=== PATIENT | female | born 1965 | race African-American/Black ===

== ENCOUNTER 2021-03-03 10:24 | Inpatient (IN) | payer OTHER ==
[2021-03-03 12:42] VITALS: BMI 41.5
[2021-03-03] MEDS ORDERED: MAGNESIUM HYDROX 2400MG/30ML ORAL SUSPENSION 30 ML CUP PO PRN (13:40)
[2021-03-03] MEDS ORDERED: ONDANSETRON *ODT* 4 MG TABLET SL PRN (13:40)
[2021-03-03] MEDS ORDERED: ACETAMINOPHEN 325 MG TABLET (FP) PO PRN (13:40)
[2021-03-03] MEDS ORDERED: MAG HYDROX/AL HYDROX/SIMETH 30 ML UNIT-DOSE CUP PO PRN (13:40)
[2021-03-03] MEDS ORDERED: MENTHOL/PHENOL 1 EACH UD MM PRN (13:40)
[2021-03-03] MEDS ORDERED: METHOCARBAMOL 500 MG TABLET PO PRN (13:40)
[2021-03-03] MEDS ORDERED: MAGNESIUM CITRATE 300 ML BOTTLE PO PRN (13:40)
[2021-03-03] MEDS ORDERED: NICOTINE 10 MG CARTRIDGE (INHALER) IH PRN (13:40)
[2021-03-03] MEDS ORDERED: BISMUTH SUBSALICYLATE 524 MG/30 ML PO PRN (13:40)
[2021-03-03] MEDS ORDERED: hydrOXYzine PAMOATE 25 MG CAPSULE (FP) PO SCH (14:00)
[2021-03-03] MEDS: PRENATAL VITAMINS W/ FOLIC ACID TABLET (FP) PO SCH (15:17)
[2021-03-03] MEDS: diazePAM 5 MG TABLET PO PRN ×2 (15:17→19:28)
[2021-03-03] MEDS ORDERED: FUROSEMIDE 40 MG TABLET (FP) PO ONE (15:19)
[2021-03-03] MEDS: diazePAM 5 MG TABLET PO SCH ×2 (18:00→22:26)
[2021-03-03] MEDS ORDERED: FUROSEMIDE 40 MG TABLET (FP) PO SCH (22:00)
[2021-03-03] MEDS ORDERED: PATIENT'S OWN MEDICATION (NON-FORMULARY) (Zolpidem Tartrate [Ambien] 10 MG Tablet) PO SCH (22:00)
[2021-03-03] MEDS: THIAMINE HCL 100 MG TABLET (FP) PO SCH (22:26)
[2021-03-03] MEDS: MELATONIN 5 MG TABLETS PO SCH (22:33)
[2021-03-04] MEDS: IBUPROFEN 400 MG TABLET (FP) PO PRN ×3 (01:19→21:39)
[2021-03-04] MEDS: diazePAM 5 MG TABLET PO PRN (01:20)
[2021-03-04] MEDS: ALBUTEROL SO4 HFA INHALER IH PRN ×2 (01:46→10:30)
[2021-03-04] MEDS: diazePAM 5 MG TABLET PO SCH ×4 (05:44→22:00)
[2021-03-04] MEDS: ACETAMINOPHEN 325 MG TABLET (FP) PO PRN ×2 (05:45→16:27)
[2021-03-04] MEDS: LEVOTHYROXINE NA 100 MCG TABLET (FP) PO SCH (07:00)
[2021-03-04] MEDS: FUROSEMIDE 40 MG TABLET (FP) PO SCH ×2 (07:00→13:01)
[2021-03-04] MEDS ORDERED: methaDONE HCL 40 MG DISPERSABLE TABLET PO SCH (10:00)
[2021-03-04] MEDS: PRENATAL VITAMINS W/ FOLIC ACID TABLET (FP) PO SCH (10:02)
[2021-03-04] MEDS: amLODIPine BESYLATE 10 MG TABLET (FP) PO SCH (10:02)
[2021-03-04] MEDS: LOSARTAN POTASSIUM 50 MG TABLET PO SCH (10:02)
[2021-03-04 11:16] LABS: HEMATOCRIT 40.4 % (32.4-45.2); HEMOGLOBIN 13.9 GM/dL (10.7-15.3); MCH 31.6 pg (25.7-33.7); MCHC 34.3 g/dl (32.0-36.0); MEAN CELL VOLUME 92.1 fl (80-96); MEAN PLT VOLUME 9.9 fl (7.5-11.1); PLATELET COUNT 149 10^3/uL (134-434); RBC 4.39 M/mm3 (3.60-5.2); RDW 13.6 % (11.6-15.6); WHITE BLOOD COUNT 4.1 K/mm3 (4.0-10.0)
[2021-03-04 11:35] LABS: ALBUMIN 3.6 g/dl (3.4-5.0); BLOOD UREA NITROGEN 10.8 mg/dL (7-18); CALCIUM 8.7 mg/dL (8.5-10.1)
[2021-03-04 11:36] LABS: BILIRUBIN,TOTAL 0.3 mg/dL (0.2-1)
[2021-03-04 11:38] LABS: CREATININE 1.1 mg/dL (0.55-1.3)
[2021-03-04] MEDS: SODIUM CHLORIDE NASAL SPRAY 44 ML BOTTLE NS SCH ×2 (11:45→21:34)
[2021-03-04] MEDS: THIAMINE HCL 100 MG TABLET (FP) PO SCH (21:35)
[2021-03-04] MEDS: MELATONIN 5 MG TABLETS PO SCH (21:42)
[2021-03-04] MEDS: INSULIN SLIDING SCALE (NOVOLOG) 1 VIAL SQ SCH (21:52)
[2021-03-05] MEDS: ACETAMINOPHEN 325 MG TABLET (FP) PO PRN (05:40)
[2021-03-05] MEDS: methaDONE HCL 40 MG DISPERSABLE TABLET PO SCH (05:41)
[2021-03-05] MEDS: diazePAM 5 MG TABLET PO SCH ×4 (05:41→21:09)
[2021-03-05] MEDS: FUROSEMIDE 40 MG TABLET (FP) PO SCH ×4 (05:42→14:47)
[2021-03-05] MEDS: ALBUTEROL SO4 HFA INHALER IH PRN ×2 (05:55→10:22)
[2021-03-05] MEDS: LEVOTHYROXINE NA 100 MCG TABLET (FP) PO SCH (06:04)
[2021-03-05] MEDS: IBUPROFEN 400 MG TABLET (FP) PO PRN (10:18)
[2021-03-05] MEDS: PRENATAL VITAMINS W/ FOLIC ACID TABLET (FP) PO SCH (10:19)
[2021-03-05] MEDS: amLODIPine BESYLATE 10 MG TABLET (FP) PO SCH (10:19)
[2021-03-05] MEDS: SODIUM CHLORIDE NASAL SPRAY 44 ML BOTTLE NS SCH ×2 (10:19→21:10)
[2021-03-05] MEDS: LOSARTAN POTASSIUM 50 MG TABLET PO SCH (10:19)
[2021-03-05] MEDS: diazePAM 5 MG TABLET PO PRN (10:24)
[2021-03-05] MEDS: MELATONIN 5 MG TABLETS PO SCH (21:10)
[2021-03-05] MEDS: THIAMINE HCL 100 MG TABLET (FP) PO SCH (21:10)
[2021-03-05] MEDS: INSULIN SLIDING SCALE (NOVOLOG) 1 VIAL SQ SCH (23:11)
[2021-03-06] MEDS: ALBUTEROL SO4 HFA INHALER IH PRN (03:24)
[2021-03-06] MEDS: diazePAM 5 MG TABLET PO PRN ×2 (03:24→10:06)
[2021-03-06] MEDS: IBUPROFEN 400 MG TABLET (FP) PO PRN ×2 (03:29→10:06)
[2021-03-06] MEDS: methaDONE HCL 40 MG DISPERSABLE TABLET PO SCH (06:31)
[2021-03-06] MEDS: LEVOTHYROXINE NA 100 MCG TABLET (FP) PO SCH (06:32)
[2021-03-06] MEDS: diazePAM 5 MG TABLET PO SCH ×2 (06:32→17:28)
[2021-03-06] MEDS: FUROSEMIDE 40 MG TABLET (FP) PO SCH ×2 (06:33→14:51)
[2021-03-06] MEDS: LOSARTAN POTASSIUM 50 MG TABLET PO SCH (10:04)
[2021-03-06] MEDS: SODIUM CHLORIDE NASAL SPRAY 44 ML BOTTLE NS SCH ×2 (10:04→22:34)
[2021-03-06] MEDS: amLODIPine BESYLATE 10 MG TABLET (FP) PO SCH (10:04)
[2021-03-06] MEDS: PRENATAL VITAMINS W/ FOLIC ACID TABLET (FP) PO SCH (10:05)
[2021-03-06] MEDS: HYDROCHLOROTHIAZIDE 25 MG TABLET (FP) PO SCH (14:51)
[2021-03-06] MEDS: hydrOXYzine PAMOATE 25 MG CAPSULE (FP) PO PRN (20:19)
[2021-03-06] MEDS: MELATONIN 5 MG TABLETS PO SCH (22:33)
[2021-03-06] MEDS: THIAMINE HCL 100 MG TABLET (FP) PO SCH (22:33)
[2021-03-06] MEDS: INSULIN SLIDING SCALE (NOVOLOG) 1 VIAL SQ SCH (22:34)
[2021-03-07] MEDS ORDERED: diazePAM 5 MG TABLET PO ONE (06:00)
[2021-03-07] MEDS: methaDONE HCL 40 MG DISPERSABLE TABLET PO SCH (06:22)
[2021-03-07] MEDS: FUROSEMIDE 40 MG TABLET (FP) PO SCH (06:23)
[2021-03-07] MEDS: hydrOXYzine PAMOATE 25 MG CAPSULE (FP) PO PRN (06:23)
[2021-03-07] MEDS: LEVOTHYROXINE NA 100 MCG TABLET (FP) PO SCH (06:23)
[2021-03-07] MEDS: ALBUTEROL SO4 HFA INHALER IH PRN (06:44)
[2021-03-07 07:28] VITALS: BP 124/97; PULSE 72; TEMP 97
[2021-03-07] MEDS: HYDROCHLOROTHIAZIDE 25 MG TABLET (FP) PO SCH (09:10)
[2021-03-07] MEDS: SODIUM CHLORIDE NASAL SPRAY 44 ML BOTTLE NS SCH (09:10)
[2021-03-07] MEDS: LOSARTAN POTASSIUM 50 MG TABLET PO SCH (09:10)
[2021-03-07] MEDS: amLODIPine BESYLATE 10 MG TABLET (FP) PO SCH (09:10)
[2021-03-07] MEDS: PRENATAL VITAMINS W/ FOLIC ACID TABLET (FP) PO SCH (09:10)
== END 2021-03-07 09:30 | disposition home or self-care (01) | DRG 773 ==
LOC: YASAS 10:24 → Y6N 13:36
PROVIDERS: ADMIT Allergy & Immunology; ATTEND Allergy & Immunology
PROC: HZ2ZZZZ Detoxification Services for Substance Abuse Treatment (ICD-10-PCS; principal; 2021-03-03)
DX: F10.230 Alcohol dependence with withdrawal, uncomplicated (principal); F13.230 Sedative, hypnotic or anxiolytic dependence with withdrawal, uncomplicated; F11.20 Opioid dependence, uncomplicated; F14.20 Cocaine dependence, uncomplicated; F17.210 Nicotine dependence, cigarettes, uncomplicated; F25.9 Schizoaffective disorder, unspecified; F31.9 Bipolar disorder, unspecified; F41.9 Anxiety disorder, unspecified; I10 Essential (primary) hypertension; E11.9 Type 2 diabetes mellitus without complications; Z79.84 Long term (current) use of oral hypoglycemic drugs
CPT/HCPCS: 36415; 80053; 82962; 85027; 86780; 93005; 93010; C9803; U0003; U0005